=== PATIENT | female | born 1995 | race African-American/Black ===

== ENCOUNTER 2018-07-08 02:42 | Emergency (ER) | payer MEDICAID, OTHER ==
[~2018-07-08] VITALS: Ht 177.8 cm; Wt 79.6 kg
[2018-07-08 05:19] VITALS: BP 125/85
== END 2018-07-08 05:20 | disposition home or self-care (01) ==
LOC: ER 02:42
DX: H69.81 Other specified disorders of Eustachian tube, right ear (principal)
CPT/HCPCS: 99283

== ENCOUNTER 2018-10-09 11:58 | Emergency (ER) | payer OTHER ==
[~2018-10-09] VITALS: Ht 177.8 cm; Wt 168.0 kg
[2018-10-09] MEDS ORDERED: PREDNISONE 20MG TABLET PO STA (13:10)
[2018-10-09] MEDS ORDERED: ALBUTEROL (0.083%) 2.5MG/3ML NEB HHN STA (13:10)
[2018-10-09] MEDS ORDERED: IPRATROPIUM BROMIDE (0.02%) 0.5MG/2.5ML NEB HHN STA (13:10)
[2018-10-09 15:25] VITALS: BP 126/72
== END 2018-10-09 15:51 | disposition home or self-care (01) ==
LOC: ER 11:58
DX: J45.901 Unspecified asthma with (acute) exacerbation (principal)
CPT/HCPCS: 71045; 81025; 94644; 99285; J7512; J7611